=== PATIENT | female | born 1955 | race American Indian/Alaskan Native ===

== ENCOUNTER 2016-05-18 15:21 | Emergency (ER) | payer OTHER ==
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
--- NOTE | 2016-05-18 21:07 | XRay Report ---
FINAL REPORT PROCEDURE: XR CHEST ROUTINE 2V TECHNIQUE: PA and lateral chest radiographs were obtained. CPT 68402 HISTORY: cough assoc chest pain COMPARISON: No prior studies are available for comparison. FINDINGS: Heart: Normal. Mediastinum/Vessels: Normal. Lungs/Pleural space: Normal. Bony thorax: No acute osseous abnormality. Other: IMPRESSION: Normal examination.
[2016-05-18 22:22] VITALS: BP 158/88
== END 2016-05-18 21:35 | disposition home or self-care (01) ==
LOC: ED 15:21
DX: J40 Bronchitis, not specified as acute or chronic (principal); J06.9 Acute upper respiratory infection, unspecified; I10 Essential (primary) hypertension; E11.9 Type 2 diabetes mellitus without complications; M19.90 Unspecified osteoarthritis, unspecified site; E78.00 Pure hypercholesterolemia, unspecified; Z90.710 Acquired absence of both cervix and uterus; Z87.891 Personal history of nicotine dependence; Z90.81 Acquired absence of spleen; Z79.4 Long term (current) use of insulin; Z79.1 Long term (current) use of non-steroidal anti-inflammatories (NSAID); Z79.84 Long term (current) use of oral hypoglycemic drugs; Z79.899 Other long term (current) drug therapy
CPT/HCPCS: 71020; 99283

== ENCOUNTER 2019-05-19 20:58 | Emergency (ER) | payer OTHER ==
--- NOTE | 2019-05-19 21:38 | Event Note ---
ED Screening Note Date of service: 05/19/19 Time: 21:35 ED Screening Note: This is a 63 y.o. F. that presents to the ER with productive cough for 2 weeks. Nonsmoker PMH of DM2 and HTN This initial assessment/diagnostic orders/clinical plan/treatment(s) is/are subject to change based on patients health status, clinical progression and re- assessment by fellow clinical providers in the ED. Further treatment and workup at subsequent clinical providers discretion. Patient/guardian urged not to elope from the ED as their condition may be serious if not clinically assessed and managed. Initial orders include: CXR
--- NOTE | 2019-05-19 22:32 | XRay Report ---
CHEST 2 VIEWS 2159 INDICATION / CLINICAL INFORMATION: cough COMPARISON: 05/18/2016 FINDINGS: SUPPORT DEVICES: None. HEART / MEDIASTINUM: No significant abnormality. LUNGS / PLEURA: Minimal left basilar atelectasis is seen. No areas of consolidation are noted. No ple ural effusions are seen. No pneumothorax. ADDITIONAL FINDINGS: No significant additional findings. IMPRESSION: No significant acute abnormality Signer Name: Joseph Zaidi MD Signed: 05/19/2019 10:27 PM Workstation Name: [id number]
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
[2019-05-20 00:37] VITALS: BP 181/83
== END 2019-05-20 00:41 | disposition home or self-care (01) ==
LOC: ED 20:58
DX: J40 Bronchitis, not specified as acute or chronic (principal); I10 Essential (primary) hypertension; E11.9 Type 2 diabetes mellitus without complications; M19.90 Unspecified osteoarthritis, unspecified site; Z90.710 Acquired absence of both cervix and uterus; Z79.899 Other long term (current) drug therapy
CPT/HCPCS: 71046